=== PATIENT | male | born 1980 | race Caucasian/White ===

== ENCOUNTER 2022-04-02 23:05 | Emergency (ER) | payer MEDICAID ==
[~2022-04-02] VITALS: Ht 188 cm; Wt 136.1 kg
[2022-04-03] MEDS ORDERED: SODIUM CHLORIDE 0.9% 1,000 ML IVB ONE
[2022-04-03 00:13] LABS: Basophils # (auto) 0 10 ^3/uL (0-0.2); Basophils % (auto) 0.5 % (0.0-2.0); Eosinophils # (auto) 0.1 10 ^3/uL (0-0.8); Eosinophils % (auto) 1.3 % (0.0-7.0); Hematocrit 41.4 % (41.0-53.0); Hemoglobin 14.4 g/dL (13.5-17.5); Lymphocytes % (auto) 36.3 % (10.0-50.0); Mean Corpuscular Hemoglobin 30.2 pg (28.0-32.0); Mean Corpuscular Hgb Conc. 34.8 g/dL (32.0-36.0); Mean Corpuscular Volume 86.9 fL (80.0-100.0); Monocytes # (auto) 0.7 10 ^3/uL (0-1.3); Monocytes % (auto) 8.7 % (0.0-12.0); Neutrophils # (auto) 4.3 10 ^3/uL (1.6-8.6); Neutrophils % (auto) 53.2 % (37.0-80.0); Red Blood Cells 4.77 10^6/uL (4.5-5.90); Red Cell Distribution Width 15.1 % (11.8-14.3); White Blood Cell 8.1 10^3/uL (4.4-10.8)
[2022-04-03 00:35] LABS: Albumin 3.4 g/dL (3.4-5.0); Anion Gap 9 (5-15); BUN/Creatinine Ratio 15.4; Blood Alcohol < 3.0 mg/dL (0-5); Blood Urea Nitrogen 20 mg/dL (7-18); Carbon Dioxide 28 mmol/L (21-32); Chloride 99 mmol/L (98-107); GFR African American 78 mL/min; GFR Non-African American 64 mL/min; Glucose 110 mg/dL (74-106); Potassium 4.2 mmol/L (3.5-5.1); Sodium 136 mmol/L (136-145)
[2022-04-03 00:37] LABS: Salicylate 2.7 mg/dL (2.8-20.0)
[2022-04-03 00:38] LABS: Alanine Aminotransferase 111 U/L (16-61); Alkaline Phosphatase 110 U/L (45-117); Aspartate Aminotransferase 197 U/L (15-37); Bilirubin, Total 0.6 mg/dL (0.2-1.0); Total Protein 6.8 g/dL (6.4-8.2)
[2022-04-03 00:45] LABS: Acetaminophen < 2.0 ug/mL (10-30)
[2022-04-03] MEDS ORDERED: SODIUM CHLORIDE 0.9% 1,000 ML IV ONE (01:45)
[2022-04-03 03:16] LABS: Amphetamine Screen, Urine POSITIVE (NEGATIVE); Barbiturate Scree,Urine NEGATIVE (NEGATIVE); Benzodiazephine Screen, Urine NEGATIVE (NEGATIVE); Cannabinoid Screen, Urine POSITIVE (NEGATIVE); Cocaine Screen, Urine NEGATIVE (NEGATIVE); Opiate Scree,Urine POSITIVE (NEGATIVE); Phencyclidine Screen, Urine NEGATIVE (NEGATIVE)
[2022-04-03 09:57] LABS: Albumin 2.9 g/dL (3.4-5.0); Calcium 8.5 mg/dL (8.5-10.1); Magnesium 2.9 mg/dL (1.6-2.6); Potassium 4.1 mmol/L (3.5-5.1)
[2022-04-03 10:01] LABS: Bilirubin, Total 0.5 mg/dL (0.2-1.0); Total Protein 6.3 g/dL (6.4-8.2)
[2022-04-03 12:00] VITALS: BP 125/74
== END 2022-04-03 13:25 | disposition home or self-care (01) ==
LOC: ER 23:05 → EDBD 23:05 → ER 04-03 13:24
DX: R41.82 Altered mental status, unspecified (principal); R94.31 Abnormal electrocardiogram [ECG] [EKG]
CPT/HCPCS: 36415; 80053; 80307; 80320; 80329; 82140; 83735; 85025; 93005; 96360; 96361; 99285; J7030